=== PATIENT | female | born 1955 | race Caucasian/White ===

== ENCOUNTER 2017-07-25 11:48 | Emergency (ER) | payer SELFPAY | END 2017-07-25 13:26 | disposition home or self-care (01) | LOC: E/R 13:26 | DX: M79.645 Pain in left finger(s) (principal); B00.89 Other herpesviral infection | CPT/HCPCS: 73140; 99283-25 ==

== ENCOUNTER 2017-08-29 12:21 | Emergency (ER) | payer SELFPAY ==
[2017-08-29] MEDS: LIDOCAINE 1% (MDV) 10 ML INJ INFIL (12:48)
[2017-08-29] MEDS: SILVER NITRATE SWAB TOP (12:48)
[2017-08-29] MEDS: ACETAMINOPHEN 325 MG TAB PO (13:04)
== END 2017-08-29 13:57 | disposition home or self-care (01) ==
LOC: FTE 12:21
DX: L98.0 Pyogenic granuloma (principal)
CPT/HCPCS: 11422; 88305; 99284-25

== ENCOUNTER 2017-09-02 09:29 | Emergency (ER) | payer SELFPAY | END 2017-09-02 10:39 | disposition home or self-care (01) | LOC: FTE 09:29 | DX: Z48.01 Encounter for change or removal of surgical wound dressing (principal) | CPT/HCPCS: 99283 ==